=== PATIENT | female | born 1985 | race Hispanic/Latino ===

== ENCOUNTER 2018-06-16 07:56 | Outpatient (CLI) | payer MEDICAID ==
--- NOTE | 2018-06-16 10:02 | ULT ---
ABDOMINAL ULTRASOUND: HISTORY: Abdomen pain, predominantly right-sided. FINDINGS: Real-time imaging of the upper abdomen demonstrates an echogenic focus with shadowing within the gall bladder, compatible with a gallstone. The common duct is in the 5 mm range. The liver measures 16 c m in length and shows no focal abnormalities. The spleen is 10 cm. The right and left kidneys are normal in size and not obstructed. The pancreas is obscured. The abdominal aorta and IVC regions are unremarkable. IMPRESSION: Cholelithiasis with a normal caliber common duct. POS: T[facility]
== END 2018-06-16 07:57 | disposition home or self-care (01) ==
LOC: BICULT 07:56
PROVIDERS: ATTEND Nurse Practitioner Family
DX: R10.84 Generalized abdominal pain (principal); K80.20 Calculus of gallbladder without cholecystitis without obstruction
CPT/HCPCS: 76700

== ENCOUNTER 2019-04-20 00:11 | Emergency (ER) | payer MEDICAID, SELFPAY ==
[2019-04-20] MEDS ORDERED: Dicyclomine 20 MG TAB ONE (01:22)
[2019-04-20] MEDS ORDERED: Ondansetron PF 4 MG/2 ML Vial ONE (01:22)
[2019-04-20 01:53] LABS: #Eosinphils 0.3 thou/uL (0.0-0.7); #Lymphocytes 2.3 thou/uL (1.20-3.40); #Monocytes 0.4 thou/uL (0.11-0.59); #Neutrophils 5.1 thou/uL (1.40-6.50); %Basophils 0.3 % (0.0-1.0); %Eosinophils 3.5 % (0.0-10.0); %Lymphocytes 28.3 % (21.0-51.0); %Monocytes 4.8 % (0.0-10.0); %Neutrophils 63.1 % (42.0-75.0); Hemoglobin 12.4 g/dL (12.0-16.0); Mean Corpuscular HGB CONC 33.8 g/dL (32.0-36.0); Mean Corpuscular Hemoglobin 28.6 pg (27.0-31.0); Mean Corpuscular Volume 84.5 fL (78.0-98.0); Mean Platelet Volume 7.1 fL (7.4-10.4); Platelet Count 254 thou/uL (130-400); RBC Distribution Width 12.5 % (11.5-14.5); Red Blood Cell (RBC) Count 4.34 mill/uL (4.20-5.40); White Blood Cell (WBC) Count 8.1 thou/uL (4.8-10.8)
[2019-04-20 02:13] LABS: Bacteria/HPF None Seen HPF (None Seen); Bilirubin Negative (Negative); Blood, Urine Trace (Negative); Clarity Turbid (Clear); Glucose, Urine (Dipstick) Normal (Negative); Leukocyte 75 Leu/uL (Negative); Nitrite Negative (Negative); Pregnancy Test - Urine (BHCG) Negative (Negative); Pregu Control Background? CLEAR/WHITE (CLR/WHITE); Pregu Control Bar Appear? YES (CONTROL BAR); Protein, Urine (Dipstick) Negative (Neg-Trace); RBC/HPF 0-3 HPF (0-3); Specific Gravity 1.025 (1.002-1.036); Urobilinogen Normal mg/dL (Less than 2); WBC/HPF 0-3 HPF (0-3)
[2019-04-20 02:14] LABS: ALT (SGPT) 15 U/L (8-55); AST (SGOT) 15 U/L (5-34); Alkaline Phosphatase 102 U/L (40-110); Anion Gap 13 mmol/L (10-20); BUN (Urea Nitrogen) 18 mg/dL (7.0-18.7); Bilirubin, Total 0.2 mg/dL (0.2-1.2); Calc. Creatinine Clearance 0 mL/min (70-130); Calcium 8.8 mg/dL (7.8-10.44); Carbon Dioxide 24 mmol/L (22-29); Chloride 107 mmol/L (98-107); Estimated GFR-MDRD 89; Globulin 3.1 g/dL (2.4-3.5); Glucose 98 mg/dL (70-105); Lipase 30 U/L (8-78); Potassium 3.7 mmol/L (3.5-5.1); Protein, Total 7.1 g/dL (6.0-8.3); Sodium 140 mmol/L (136-145)
--- NOTE | 2019-04-20 08:29 | ULT ---
PRELIMINARY REPORT/[facility]/EMERGENCY AFTER HOURS PROCEDURE EXAM: US Abdomen Limited, Right Upper Quadrant. CLINICAL HISTORY: RUQ pain tonight HX gallstones TECHNIQUE: Real-time ultrasound of the right upper quadrant with image documentation. COMPARISON: None provided. FINDINGS: LIVER: Appears enlarged at 18.3 cm. GALLBLADDER: Non-mobile cholelithiasis is noted in the gallbladder neck. No wall thickening. No peric holecystic fluid. The patient demonstrated a positive sonographic Scales's sign COMMON BILE DUCT: No dilation. Measures 3.3 mm PANCREAS: Partially obscured by overlying bowel gas. RIGHT KIDNEY: Unremarkable. No hydronephrosis. Measures 11.7 cm IMPRESSION: Non-mobile cholelithiasis. The patient demonstrated a positive sonographic Scales's sign however the re is no evidence for wall thickening or pericholecystic fluid. ELECTRONICALLY SIGNED BY: Elia Hummel MD Apr 20, 2019 2:13:29 AM [employer] This report is intended for review by the ordering physician only, in accordance of law. If you recei ve this report in error, please call [facility] at [phone]. FINAL REPORT EMERGENT AFTER HOURS RIGHT UPPER QUADRANT ULTRASOUND: IMPRESSION: Agree with the preliminary interpretation. Correlate with concerns for acute cholecystitis. POS: OFF
== END 2019-04-20 02:52 | disposition home or self-care (01) ==
LOC: ERS 00:11
DX: K80.70 Calculus of gallbladder and bile duct without cholecystitis without obstruction (principal)
CPT/HCPCS: 36415; 76705; 80053; 81003; 81015; 81025; 83690; 85025; 96374; J2405

== ENCOUNTER 2020-01-19 08:27 | Outpatient (CLI) | payer OTHER ==
--- NOTE | 2020-01-19 09:34 | ULT ---
ULTRASOUND OBSTETRICAL COMPLETE: DATE: 01/19/2020 HISTORY: 34-year-old female ICD-10: "O09.212, supervision of with history of labor, second t rimester. Complete anatomy, size and dates, cervical length" FINDINGS: Maternal adnexa: Not visualized. number: [email or web address] lie: Cephalic Maternal cervix: 4.5 cm. Closed. Placenta: Posterior. No placenta previa. Amniotic fluid volume: JULIO = 12.5 cm heart rate: 133 bpm The following anatomy is visualized, with no evidence of anomalies: Head, cerebellum, lateral ventricles, four-chamber heart, stomach, kidneys, cord insertion, bladder, cervical spine, thoracic spine, lumbar spine, sacrum, nose and lips, upper extremities, lower extremities, and three-vessel cord. biometry: Biparietal diameter (BPD): 4.8 cm 20 w 4 d Head circumference (HC): 18.2 cm 20 w 4 d Abdominal circumference (AC): 15.9 cm 21 w 0 d Femur length (FL): 3.2 cm 20 w 0 d Average ultrasound age (AUA): 20 w 4 d Estimated date of delivery (BHASKAR): 06/03/2020 Estimated weight (EFW): 360 g +/- 53 g IMPRESSION: 1) Live 2nd trimester intrauterine gestation. 2) Estimated gestational age of 20 weeks, 4 days 3) cephalic lie. 4) no anatomic abnormality identified.
== END 2020-01-19 08:28 | disposition home or self-care (01) ==
LOC: BICULT 08:27
PROVIDERS: ATTEND Family Medicine
DX: O09.212 Supervision of pregnancy with history of pre-term labor, second trimester (principal); Z3A.20 20 weeks gestation of pregnancy
CPT/HCPCS: 76805

== ENCOUNTER 2020-05-24 12:11 | Outpatient (CLI) | payer OTHER ==
[2020-05-24 22:13] LABS: SARS-CoV-2 PCR by NAA Not Detected (NotDetected)
== END 2020-05-24 12:12 | disposition home or self-care (01) ==
LOC: LABBT 12:11
PROVIDERS: ATTEND Family Medicine
DX: Z20.822 Contact with and (suspected) exposure to COVID-19 (principal)
CPT/HCPCS: 87635; U0003; U0005

== ENCOUNTER 2022-12-11 17:00 | Outpatient (CLI) | payer OTHER | END 2022-12-11 17:01 | disposition home or self-care (01) | LOC: SLEEPLAB 17:00 | PROVIDERS: ATTEND Nurse Practitioner Family | DX: G47.33 Obstructive sleep apnea (adult) (pediatric) (principal); F32.A Depression, unspecified; E66.9 Obesity, unspecified; R53.83 Other fatigue | CPT/HCPCS: 95811 ==